=== PATIENT | female | born 1950 | race Caucasian/White ===

== ENCOUNTER → 2023-11-27 12:47 | Outpatient (BNVA) | payer MEDICARE, SELFPAY | PROVIDERS: PCP Registered Nurse; Referring Provider Registered Nurse; Visit Provider Student in an Organized Health Care Education/Training Program | DX: R94.2 Abnormal results of pulmonary function studies; J96.91 Respiratory failure, unspecified with hypoxia | CPT/HCPCS: 94618; 99205 ==